=== PATIENT | male | born 1970 | race Caucasian/White ===

== ENCOUNTER 2017-07-05 17:48 | Emergency (ER) | payer OTHER ==
--- NOTE | 2017-07-05 17:50 | NUR ---
Pt name called. No answer.
--- NOTE | 2017-07-05 18:10 | NUR ---
Pt name called, no answer.
== END 2017-07-05 18:10 | disposition left against medical advice (07) ==
LOC: SED 17:48
DX: M54.9 Dorsalgia, unspecified (principal); Z53.21 Procedure and treatment not carried out due to patient leaving prior to being seen by health care provider